=== PATIENT | female | born 1970 | race Caucasian/White ===

== ENCOUNTER 2023-07-25 14:02 | Outpatient (CLI) | payer MEDICARE, SELFPAY | END 2023-07-25 14:03 | disposition home or self-care (01) | LOC: AMB 08-02 10:08 | PROVIDERS: Visit Provider Family Medicine | DX: S09.90XA Unspecified injury of head, initial encounter (principal); W17.89XA Other fall from one level to another, initial encounter; Y92.096 Garden or yard of other non-institutional residence as the place of occurrence of the external cause | CPT/HCPCS: A0425; A0429 ==

== ENCOUNTER 2023-08-02 10:01 | Outpatient (CLI) | payer MEDICARE, SELFPAY | END 2023-08-02 10:02 | disposition home or self-care (01) | LOC: AMB 08-06 10:09 | PROVIDERS: Visit Provider Emergency Medicine | DX: S99.921A Unspecified injury of right foot, initial encounter (principal); W31.89XA Contact with other specified machinery, initial encounter; Y92.10 Unspecified residential institution as the place of occurrence of the external cause | CPT/HCPCS: A0425; A0427 ==

== ENCOUNTER 2023-08-19 13:25 | Outpatient (CLI) | payer MEDICARE, SELFPAY | END 2023-08-19 13:26 | disposition home or self-care (01) | PROVIDERS: Visit Provider Student in an Organized Health Care Education/Training Program | DX: S09.90XA Unspecified injury of head, initial encounter (principal); W18.30XA Fall on same level, unspecified, initial encounter; Y92.10 Unspecified residential institution as the place of occurrence of the external cause | CPT/HCPCS: A0425; A0429 ==

== ENCOUNTER 2024-01-10 09:10 | Outpatient (CLI) | payer MEDICARE, SELFPAY | END 2024-01-10 09:11 | disposition home or self-care (01) | LOC: AMB 01-12 09:46 | PROVIDERS: Visit Provider Student in an Organized Health Care Education/Training Program | DX: R20.0 Anesthesia of skin (principal); R41.82 Altered mental status, unspecified | CPT/HCPCS: A0425; A0429 ==

== ENCOUNTER 2024-02-25 09:26 | Outpatient (CLI) | payer MEDICARE, SELFPAY | END 2024-02-25 09:27 | disposition home or self-care (01) | LOC: AMB 02-26 04:33 | PROVIDERS: Visit Provider Family Medicine | DX: R53.1 Weakness (principal) | CPT/HCPCS: A0425; A0427 ==

== ENCOUNTER 2024-03-18 11:42 | Outpatient (CLI) | payer OTHER, SELFPAY | END 2024-03-18 11:43 | disposition home or self-care (01) | LOC: AMB 04-24 00:51 | PROVIDERS: Visit Provider Student in an Organized Health Care Education/Training Program | DX: H53.8 Other visual disturbances (principal) | CPT/HCPCS: A0425; A0427 ==

== ENCOUNTER 2024-03-19 15:40 | Outpatient (CLI) | payer MEDICARE, SELFPAY | END 2024-03-19 15:41 | disposition home or self-care (01) | PROVIDERS: Visit Provider Family Medicine | DX: R53.1 Weakness (principal) | CPT/HCPCS: A0425; A0427 ==

== ENCOUNTER 2024-10-01 09:51 | Outpatient (CLI) | payer MEDICARE, SELFPAY | END 2024-10-01 09:52 | disposition home or self-care (01) | PROVIDERS: Visit Provider Emergency Medicine | DX: R09.02 Hypoxemia (principal) | CPT/HCPCS: A0998 ==

== ENCOUNTER 2025-06-29 11:41 | Outpatient (CLI) | payer MEDICARE, MEDICAID, SELFPAY | END 2025-06-29 11:42 | disposition home or self-care (01) | LOC: AMB 07-05 18:00 | PROVIDERS: Visit Provider Student in an Organized Health Care Education/Training Program | DX: M62.81 Muscle weakness (generalized) (principal) | CPT/HCPCS: A0425; A0427 ==

== ENCOUNTER 2025-07-12 08:03 | Outpatient (CLI) | payer MEDICARE, MEDICAID, SELFPAY | END 2025-07-12 08:04 | disposition home or self-care (01) | LOC: AMB 07-14 16:10 | PROVIDERS: Visit Provider Emergency Medicine | DX: R53.1 Weakness (principal) | CPT/HCPCS: A0998 ==

== ENCOUNTER 2025-07-19 09:56 | Outpatient (CLI) | payer MEDICARE, MEDICAID, SELFPAY | END 2025-07-19 09:57 | disposition home or self-care (01) | LOC: AMB 07-23 12:41 | PROVIDERS: Visit Provider Emergency Medicine | DX: N39.0 Urinary tract infection, site not specified (principal) | CPT/HCPCS: A0425; A0429 ==